=== PATIENT | male | born 1950 | race Caucasian/White ===

== ENCOUNTER 2018-08-06 23:42 | Emergency (ER) | payer MEDICARE, BC ==
[~2018-08-06] VITALS: Ht 177.8 cm; Wt 122.5 kg
[2018-08-06 23:50] VITALS: BP 159/97
== END 2018-08-07 01:07 | disposition home or self-care (01) ==
LOC: EDBD 23:50 → ER 23:50
DX: H10.13 Acute atopic conjunctivitis, bilateral (principal); H01.005 Unspecified blepharitis left lower eyelid; I10 Essential (primary) hypertension

== ENCOUNTER 2022-01-01 07:22 | Emergency (ER) | payer MEDICARE, BC ==
[~2022-01-01] VITALS: Ht 177.8 cm; Wt 131.5 kg
--- NOTE | 2022-01-01 07:22 | NUR ---
TO ER BED 1. BIBS C/O STUBBED HIS GREAT TOE, LEFT FOOT AGAINST STAIRS. PT STATED PAIN IS 5/10 ON PAIN SCALE.
[2022-01-01 07:39] VITALS: BP 125/81
[2022-01-01] MEDS ORDERED: IBUP-1955 PO (07:46)
--- NOTE | 2022-01-01 08:55 | NUR ---
Patient discharged to home in stable condition. Written and verbal after care instructions given. Patient verbalizes understanding of instruction.
== END 2022-01-01 08:56 | disposition home or self-care (01) ==
LOC: ER 07:27
DX: S92.425A Nondisplaced fracture of distal phalanx of left great toe, initial encounter for closed fracture (principal); I10 Essential (primary) hypertension; Z79.1 Long term (current) use of non-steroidal anti-inflammatories (NSAID); W22.8XXA Striking against or struck by other objects, initial encounter; Y93.89 Activity, other specified; Y92.89 Other specified places as the place of occurrence of the external cause; Y99.8 Other external cause status
CPT/HCPCS: 73660-TC